=== PATIENT | female | born 1975 | race African-American/Black ===

== ENCOUNTER 2017-06-29 16:09 | Observation (INO) | payer BC ==
[~2017-06-29 16:09] MED LIST: AMLO5TAB2 PO; FENO160T PO; LISI10TA3 PO; MACR100C PO; METO25TA3 PO; OMEG100010 PO; TERC45CR PV
[2017-06-29] MEDS ORDERED: LORazepam 1 MG TAB PO PRN (17:00)
[2017-06-29] MEDS ORDERED: FLUMAZENIL 0.5 MG/5 ML VIAL IV PUSH PRN (17:00)
[2017-06-29] MEDS ORDERED: LORazepam 2 MG/ML VIAL IV PUSH PRN ×4 (17:00)
[2017-06-29] MEDS ORDERED: LORazepam 2 MG TAB PO PRN (17:00)
[2017-06-29] MEDS ORDERED: ACETAMINOPHEN/HYDROcodone 325 MG/5 MG TAB PO PRN (17:00)
[2017-06-29] MEDS ORDERED: SODIUM CHLORIDE 0.9% FLUSH 10 ML FLUSH IV FLUSH PRN (17:00)
[2017-06-29] MEDS ORDERED: IBUPROFEN 800 MG TAB PO PRN (17:00)
--- NOTE | 2017-06-29 17:00 | HHI.HP ---
HPI Service [facility] Primary Care Physician Non-Staff Admission Diagnosis Diagnoses: (1) Cellulitis of ankle Diagnosis: Principal (2) Leucocytosis Diagnosis: Principal Chief Complaint: Left ankle pain Travel History International Travel<30 Days: No Contact w/Intl Traveler <30 Da: No History of Present Illness Written by Umer Arciniega, acting as scribe for Dr. Ruiz on 06/29/17 at 16: 52. 42-year-old female with known history of hypertension, lung blebs who presented to hospital because of left ankle swelling. Patient states that she woke up yesterday morning with a pinpoint insect bite located on the posterior aspect of her left Achilles tendon. She was doing fine throughout the day yesterday and now she woke up this morning she had increased swelling, redness, pain. It was painful to ambulate and because of those reasons she came to the emergency department for evaluation. Patient had workup done in found to have mild leukocytosis. Patient clinically had cellulitis of the left ankle and it was recommended by the ER physician that the patient be observed in the hospital with IV antibiotics. Patient denies any fever, chills. Patient does not know what type of insect bit her. Review of Systems Integumentary: COMPLAINS OF: Abnormal pigmentation Except as stated in HPI: all other systems reviewed are Neg Past Family Social History Past Medical History Hypertension Lung blebs Past Surgical History Lung bleb resection 2 years ago Reported Medications Reported Meds & Active Scripts Active Reported Jordan 3 1000 mg (Jordan-3 Fatty Acids) 1 Cap Cap 1,000 Mg PO QID Fenofibrate 160 Mg Tab 160 Mg PO DAILY Metoprolol Tartrate 25 Mg Tab 25 Mg PO BID Amlodipine (Amlodipine Besylate) 5 Mg Tab 5 Mg PO DAILY Lisinopril 10 Mg Tab 10 Mg PO DAILY Allergies: Coded Allergies: naproxen (Verified Allergy, Severe, Itching, 06/29/17) Uncoded Allergies: cillins (Allergy, Severe, 03/24/11) Family History Reviewed is significant for father having lung blebs and heart disease. Patient states that this cancer throughout the family with multiple aunts with breast cancer and other cancer she cannot identify. Social History Patient states that she quit smoking 2 years ago, prior to that she smoked a pack a cigarettes a day since she was 14 years old. Patient does drink a bottle of wine daily, she states that she only used to drink 2 glasses daily but due to on due to stress from her approaching wedding she has increased the amount of alcohol. She denies any previous episodes of alcohol withdrawal. Patient denies any illicit drugs Physical Exam Physical Exam GENERAL: Well-developed, well-nourished, in no acute distress. alert and orientated HEENT: Head is normocephalic without any lesions or masses noted. Facial features are symmetric. Eyes: Pupils equal round reactive to light. Extraocular muscles are intact. Conjunctivae were clear. Oropharyngeal: Pharynx without any erythema edema. Tongue is midline without deviation. Buccal mucosa is moist without any masses or lesions NECK: Supple without any masses. Trachea midline no deviation. No JVD, no bruits are appreciated CARDIAC: Regular rhythm, regular rate. S1/S2 are heard. No murmurs gallops or rubs. LUNGS: Clear to auscultation bilaterally. No wheeze, rhonchi or rales. No use of accessory muscles on inspiration or expiration. ABDOMEN: Soft, nontender. Nondistended. Bowel sounds heard in all 4 quadrants. No organomegaly or masses. Negative rebound, negative guarding EXTREMITIES: No edema, pulses are equal bilaterally. No cyanosis or clubbing NEUROLOGY: Mood and affect appear appropriate. Cranial nerves II through XII grossly intact. Muscle strength 5/5 in upper and lower extremities bilaterally. Deep tendon reflexes are 2+ in upper and lower extremities bilaterally. LEFT ANKLE: Patient does have a open area noted on posterior aspect of her Achilles tendon. No obvious exudates noted. She does have swelling noted on bilateral malleolus is with erythema noted mainly over the medial malleolus. There is some mild lymph nodes noted in the left popliteal fossa. There is no inguinal lymph nodes appreciated. Assessment and Plan Assessment and Plan Cellulitis of the left ankle, possibly secondary to insect bite Patient be started on Ancef and monitor for improvement Patient to keep elevated Hypertension Continue home medications Daily alcohol use Monitor for withdrawals DVT prevention Low risk, early ambulation This note was transcribed by [email or web address] [Umer Arciniega]. I, Dr. Nancy Ruiz personally performed the history, physical exam, and medical decision making; and confirmed the accuracy of the information in the transcribed note. Authenticated by Dr. Nancy Ruiz on 06/29/17 at 17:02. Problem Qualifiers (1) Leucocytosis: Qualified Code: D72.829 - Leukocytosis, unspecified type Umer Arciniega Jun 29, 2017 17:00 Nancy Ruiz MD Jun 29, 2017 17:04
[2017-06-29 20:00] VITALS: BP 142/92; PULSE 95; RESP 20; TEMP 98.6; O2SAT 100
[2017-06-29] MEDS: SODIUM CHLORIDE 0.9% FLUSH 10 ML FLUSH IV FLUSH SCH (20:20)
[2017-06-29] MEDS: METOPROLOL TARTRATE 25 MG TAB PO SCH (20:20)
[2017-06-30] VITALS: BP 123/85; PULSE 81; RESP 20; TEMP 97.6; O2SAT 100
[2017-06-30 08:57] VITALS: BP 112/88; PULSE 80; RESP 20; TEMP 96.9; O2SAT 100
[2017-06-30] MEDS ORDERED: LISINOPRIL 10 MG TAB PO SCH (09:00)
[2017-06-30] MEDS ORDERED: amLODIPine BESYLATE 5 MG TAB PO SCH (09:00)
[2017-06-30] MEDS ORDERED: FENOFIBRATE 145 MG TAB PO SCH (09:00)
[2017-06-30] MEDS: SODIUM CHLORIDE 0.9% FLUSH 10 ML FLUSH IV FLUSH SCH (09:04)
[2017-06-30] MEDS: METOPROLOL TARTRATE 25 MG TAB PO SCH (09:04)
[2017-06-30] MEDS ORDERED: CLIN1CAP6 PO (12:07)
--- NOTE | 2017-06-30 12:07 | HHI.DCPOC ---
Discharge Care Plan Diagnosis: (1) Cellulitis of skin with lymphangitis (2) Cellulitis of ankle Goals to Promote Your Health * To prevent worsening of your condition and complications * To maintain your health at the optimal level Directions to Meet Your Goals Take your medications as prescribed Follow your dietary instruction Follow activity as directed Keep your appointments as scheduled Take your immunizations and boosters as scheduled If your symptoms worsen call your PCP, if no PCP go to Urgent Care Center or Emergency Room Smoking is Dangerous to Your Health. Avoid second hand smoke Call the 24-hour hour crisis hotline for domestic abuse at Nancy Ruiz MD Jun 30, 2017 12:07
--- NOTE | 2017-06-30 12:14 | HHI.PR ---
Subjective Remarks Patient reports she is feeling better. Left ankle erythema and swelling have improved. No fevers or chills. Objective Vitals Vital Signs Date Time Temp Pulse Resp B/P Pulse Ox O2 Delivery O2 Flow Rate FiO2 06/30/17 08:57 96.9 80 20 112/88 100 06/30/17 00:00 97.6 81 20 123/85 100 06/29/17 20:00 98.6 95 20 142/92 100 I/O 06/29/17 06/29/17 06/29/17 06/30/17 06/30/17 06/30/17 07:00 15:00 23:00 07:00 15:00 23:00 Intake Total 820 ml 120 ml Balance 820 ml 120 ml Intake Oral 720 ml IV Total 100 ml 120 ml # Voids 1 # Bowel Movements 0 Objective Remarks GENERAL: This is a well-nourished, well-developed patient, in no apparent distress. SKIN: There is evidence of an insect bite on the left Achilles. There is surrounding erythema and mild swelling. Improved compared to yesterday. No lymphatic streaking. CARDIOVASCULAR: Normal rate and regular rhythm without murmurs, gallops, or rubs. RESPIRATORY: Good respiratory efforts. Breath sounds equal and clear to auscultation bilaterally. GASTROINTESTINAL: Abdomen soft, non-tender, non-distended. Normal active bowel sounds MUSCULOSKELETAL: Extremities without cyanosis, or edema. NEURO: Alert & Oriented x4 to person, place, time, situation. Moves all ext x4 PSYCH: Appropriate mood and affect. A/P Problem List: (1) Cellulitis of ankle ICD Code: L03.119 Status: Acute (2) Leucocytosis ICD Code: D72.829 Status: Acute Assessment and Plan Cellulitis of the left ankle, probably secondary to insect bite Patient be started on Ancef and improved. She is discharged on oral clindamycin Hypertension Continue home medications Patient is medically stable for discharge home. Discharge home in good condition Activity: Regular as tolerated. Advised her to keep the leg elevated to help swelling Diet: Heart healthy Meds: Per med rec Follow-up: With PCP Problem Qualifiers (1) Leucocytosis: Qualified Code: D72.829 - Leukocytosis, unspecified type Nancy Ruiz MD Jun 30, 2017 12:14
== END 2017-06-30 13:13 | disposition home or self-care (01) ==
LOC: PHEDDLT 16:09 → PH3B 16:16
PROVIDERS: ADMIT Family Medicine; ATTEND Family Medicine
DX: L03.116 Cellulitis of left lower limb (principal); I10 Essential (primary) hypertension; W57.XXXA Bitten or stung by nonvenomous insect and other nonvenomous arthropods, initial encounter; Z87.891 Personal history of nicotine dependence
CPT/HCPCS: 80048; 85025; 87040; 90471; 90714; 96365; 96366; 99285; G0378; J0690; J3370; 99281